=== PATIENT | male | born 1995 | race American Indian/Alaskan Native ===

== ENCOUNTER 2017-12-22 22:47 | Emergency (ER) | payer SELFPAY ==
[2017-12-22] MEDS ORDERED: NACL 0.9% 1000 ML 1,000 ML ONE (22:49)
[2017-12-22] MEDS ORDERED: MORPHINE IV ONE (22:50)
[2017-12-22] MEDS ORDERED: ZOFRAN IV ONE (22:50)
[2017-12-22] MEDS ORDERED: NACL 0.9% 1000 ML 1,000 ML IV ONE (22:50)
[2017-12-22] MEDS ORDERED: ceFAZolin 2 GM in NACL 0.9% 100 ML IV ONE (22:51)
[2017-12-22 23:00] LABS: Hematocrit 37.8 % (35.5-45.6); Hemoglobin 12.5 gm/dl (11.8-15.2); Mean Corpuscular HGB Conc 33 % (32-34); Mean Corpuscular Hemoglobin 27 pg (28-32); Mean Corpuscular Volume 83 fl (84-94); Platelet Count 262 K/mm3 (140-440); Red Blood Count 4.56 M/mm3 (3.65-5.03); Red Cell Distribution Width 13.4 % (13.2-15.2)
[2017-12-22] MEDS ORDERED: ANCEF/STERILE WATER 2 GM/20 ML 2 GM/20 ML SYRINGE IV ONE (23:00)
[2017-12-22 23:11] LABS: INR 0.95 (0.87-1.13)
[2017-12-22 23:12] LABS: Partial Thromboplastin Time 29.4 Sec. (24.2-36.6)
[2017-12-22 23:18] LABS: Alanine Aminotransferase 10 units/L (7-56); Albumin 4.4 g/dL (3.9-5); BUN/Creatinine Ratio 14; Blood Urea Nitrogen 14 mg/dL (9-20); Calcium 9.1 mg/dL (8.4-10.2); Hemolysis Index 7
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
[2017-12-22] MEDS ORDERED: SUBLIMAZE IV ONE (23:49)
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
[2017-12-23] MEDS ORDERED: GARAMYCIN IV ONE (00:12)
[2017-12-23] MEDS ORDERED: NACL 0.9% IV ONE (00:12)
[2017-12-23 00:48] LABS: Band Neutrophils # (Manual) 0.1 K/mm3; Total Cells Counted 100
[2017-12-23 00:49] LABS: RBC Morphology Normal
[2017-12-23 01:26] VITALS: BP 92/47
== END 2017-12-23 02:05 | disposition home or self-care (01) ==
LOC: EDBD → ED 22:47
DX: S81.802A Unspecified open wound, left lower leg, initial encounter (principal); W34.09XA Accidental discharge from other specified firearms, initial encounter; Y93.01 Activity, walking, marching and hiking; Y99.8 Other external cause status; Y92.89 Other specified places as the place of occurrence of the external cause
CPT/HCPCS: 29505; 36415; 73552; 73590; 80053; 85007; 85025; 85610; 85730; 96365; 96375; 99291; J0690; J1580; J2270; J2405; J3010; J7030